=== PATIENT | female | born 1995 | race Caucasian/White ===

== ENCOUNTER → 2019-05-13 | Outpatient (CLI) | payer SELFPAY ==
--- NOTE | 2019-05-13 16:29 | Diagnostic Imaging Report ---
INDICATION: TB screening FINDINGS: The lungs are clear. The heart and vessels normal. There is no effusion or pneumothorax. IMPRESSION: Negative. Dictated by: Dictated on workstation # [id number]
== END ==
LOC: RAD FS 11:52
PROVIDERS: ATTEND Nurse Practitioner
DX: Z11.1 Encounter for screening for respiratory tuberculosis (principal)
CPT/HCPCS: 71046

== ENCOUNTER → 2019-05-26 | Outpatient (CLI) | payer OTHER ==
[~2019-05-26] MED LIST: LIDOCAINE 1% INJ 20 ML 20 ML VIAL INJ ONE; LIDOCAINE 1% INJ 20 ML 20 ML VIAL ONE
--- NOTE | 2019-05-26 15:41 | Diagnostic Imaging Report ---
INDICATION: Right breast mass. Patient presents for an ultrasound-guided biopsy. TECHNIQUE: The patient was brought to the procedure room and placed on the table in the supine position. Ultrasound imaging of the right breast was performed to evaluate for an appropriate entry site. The right breast was then prepped and draped in the usual sterile fashion. A small amount of 1% lidocaine was utilized for local anesthesia. A total of three passes was made into the solid mass at the 2 o'clock location of the right breast 3 cm from the nipple utilizing a 14-gauge Achieve needle. A marker clip was then deployed within the lesion. Hemostasis was obtained using manual compression. The patient tolerated the procedure well and left the Department in stable condition. IMPRESSION: Successful ultrasound guided core biopsy of the solid mass at the 2 o'clock location of the right breast as described. Pathology results are currently pending. Dictated by: Dictated on workstation # [id number]
== END ==
LOC: RAD 10:24
PROVIDERS: ATTEND Nurse Practitioner
DX: N63.12 Unspecified lump in the right breast, upper inner quadrant (principal)
CPT/HCPCS: 19083

== ENCOUNTER → 2020-09-03 | Outpatient (CLI) | payer OTHER ==
[~2020-09-03] VITALS: Ht 144.8 cm; Wt 36.4 kg
[~2020-09-03] MED LIST changes: -LIDOCAINE 1% INJ 20 ML 20 ML VIAL ONE
--- NOTE | 2020-09-03 10:34 | Diagnostic Imaging Report ---
INDICATION: Left breast nodule. PROCEDURE: Patient presents for ultrasound-guided core biopsy. The patient was brought to the procedure room, placed on the table in the supine position. Ultrasound imaging of the left breast was performed to evaluate appropriate entry site. The left breast was then prepped and draped in the usual sterile fashion. A small amount of 1% lidocaine was utilized for local anesthesia. Two core biopsies were obtained of the hypoechoic solid mass at the 10:00 location of the left breast, 3 cm from the nipple, utilizing a 14-gauge Achieve needle. Marker clip was then deployed. Hemostasis was obtained using manual compression. The patient tolerated the procedure well left the department in stable condition. IMPRESSION: Successful sono-guided core biopsy of left breast mass. Pathology results are currently pending. Dictated by: Dictated on workstation # [id number]
== END ==
LOC: RAD 09:01
PROVIDERS: ATTEND Nurse Practitioner
DX: N63.20 Unspecified lump in the left breast, unspecified quadrant (principal)
CPT/HCPCS: 19083; A4648

== ENCOUNTER 2022-01-10 01:51 | Inpatient (IN) | payer SELFPAY ==
[~2022-01-10] VITALS: Ht 139.7 cm; Wt 54.6 kg
[2022-01-10] VITALS (66 sets, daily range): BP systolic 91–138; BP diastolic 51–90
[2022-01-10 02:25] LABS: BILIRUBIN,URINE NEGATIVE (NEGATIVE); CLARITY,URINE CLEAR; COLOR,URINE YELLOW; GLUCOSE, URINE (UA) NEGATIVE (NEGATIVE); KETONES,URINE NEGATIVE (NEGATIVE); LEUKOCYTE ESTERASE ,URINE NEGATIVE (NEGATIVE); NITRITE,URINE NEGATIVE (NEGATIVE); PH,URINE 6.5 (5-9); PROTEIN,URINE 2+ (NEGATIVE)
[2022-01-10] MEDS ORDERED: PREN-142 PO (02:29)
[2022-01-10] MEDS ORDERED: FERR-84 PO (02:29)
[2022-01-10 02:39] LABS: WBC,URINE 0-2 /HPF
[2022-01-10 02:40] LABS: BACTERIA,URINE FEW /HPF
[2022-01-10 03:00] LABS: BASOPHILS % (AUTO) 0 % (0-10); EOSINOPHILS # (AUTO) 0.3 10^3/uL (0.0-0.3); EOSINOPHILS % (AUTO) 3 % (0-10); HEMATOCRIT 39 % (35-52); HEMOGLOBIN 13.3 g/dL (11.5-16.0); LYMPHOCYTES # (AUTO) 3.3 10^3/uL (1.0-4.0); LYMPHOCYTES % (AUTO) 29 % (12-44); MEAN CORPUSCULAR HEMOGLOBIN 31 pg (25-34); MEAN CORPUSCULAR HGB CONC 34 g/dL (32-36); MEAN CORPUSCULAR VOLUME 92 fL (80-99); MEAN PLATELET VOLUME 11.1 fL (9.0-12.2); MONOCYTES # (AUTO) 0.9 10^3/uL (0.0-1.0); MONOCYTES % (AUTO) 8 % (0-12); NEUTROPHILS % (AUTO) 61 % (42-75); PLATELET COUNT 269 10^3/uL (130-400); WHITE BLOOD COUNT 11.5 10^3/uL (4.3-11.0)
[2022-01-10] MEDS: D5 LR IV SOLUTION 1,000 ML IV SCH ×2 (03:19→11:17)
[2022-01-10] MEDS ORDERED: CATHETER FLUSH 10 ML SYR IV SCH ×2 (06:00→22:00)
[2022-01-10] MEDS ORDERED: OXYTOCIN PRE-MIX DRIP 500 ML IV SCH ×2 (07:30→20:00)
--- NOTE | 2022-01-10 07:33 | History & Physical-OB ---
OB - Chief Complaint & HPI Date/Time Date of Admission: Date of Admission: Jan 10, 2022 at 02:33 Date seen by a Provider: Jan 10, 2022 Time Seen by a Provider: 07:20 Chief Complaint/History OB-Reason for Admission/Chief: Rupture of Membranes Hx : 1 Hx Para: 0 Expected Date of Delivery: Jan 18, 2022 Gestational Age in Weeks: 38 Gestational Age in Days: 6 Admission Nurse Assessment Rev: Yes History of Labs GBS negative, A pos, RPR neg, HIV neg Allergies and Home Medications Allergies Coded Allergies: No Known Drug Allergies (Unverified , 05/26/19) Patient Home Medication List Home Medication List Reviewed: Yes Ferrous Sulfate (Iron) 325 Mg (65 Mg Iron) Tablet, 325 MG PO DAILY, (Reported) Entered as Reported by: DECLAN ESCALERA on 01/10/22228 Last Action: New Order Vit No.124/Iron/FA ( Vitamin Tablet) 27 Mg Iron-800 Mcg Tablet, 1 EACH PO DAILY, (Reported) Entered as Reported by: DECLAN ESCALERA on 01/10/22228 Last Action: New Order OB - History Hx of Present Care: Yes Ultrasounds: Normal mid trimester US Obstetrical Complications: None Medical Complications: None Obstetrical History Hx : 1 Hx Para: 0 Patient Past Medical History no chronic medical problems Social History/Family History Alcohol Use: Denies Use Recreational Drug Use: No 2nd Hand Smoke Exposure: No Immunizations Influenza Vaccine Up-to-Date: No; Not Current Hepatitis A: Yes Hepatitis B: Yes OB - Admission Exam Physical Exam Vitals: Vital Signs 01/10/22 01/10/22 03:26 05:40 Temp 36.7 Pulse 69 Resp 18 B/P (MAP) 124/75 (91) Pulse Ox 99 O2 Delivery Room Air HEENT: Moist Membranes Heart: Rhythm Normal Lungs: Clear Abdomen: Gravid Extremities: Normal Cervical Dilatation: None Effacement: 75% Station: -3 Membranes: Ruptured Amniotic Fluid: Clear Heart Rate: 140's Accelerations: Accelerations Present Short Term Variability: Present Last Picker Variability: Average (6-25) Contractions on Admission: 6-10 Minutes Apart Intensity: Mild Labs Laboratory Tests Test 01/10/22 02:10 01/10/22 02:15 01/10/22 02:45 Range/Units Urine Color YELLOW Urine Clarity CLEAR Urine pH 6.5 5-9 Urine Specific [place] 1.020 1.016-1.022 Urine Protein 2+ H NEGATIVE Urine Glucose (UA) NEGATIVE NEGATIVE Urine Ketones NEGATIVE NEGATIVE Urine Nitrite NEGATIVE NEGATIVE Urine Bilirubin NEGATIVE NEGATIVE Urine Urobilinogen 0.2 < = 1.0 MG/DL Urine Leukocyte Esterase NEGATIVE NEGATIVE Urine RBC (Auto) 1+ H NEGATIVE Urine RBC 2-5 H /HPF Urine WBC 0-2 /HPF Urine Squamous Epithelial Cells 10-25 H /HPF Urine Crystals NONE /LPF Urine Bacteria FEW H /HPF Urine Casts NONE /LPF Urine Mucus MODERATE H /LPF Urine Culture Indicated NO Membranes Rupture POSITIVE White Blood Count 11.5 H 4.3-11.0 10^3/uL Red Blood Count 4.24 3.80-5.11 10^6/uL Hemoglobin 13.3 11.5-16.0 g/dL Hematocrit 39 35-52 % Mean Corpuscular Volume 92 80-99 fL Mean Corpuscular Hemoglobin 31 25-34 pg Mean Corpuscular Hemoglobin Concent 34 32-36 g/dL Red Cell Distribution Width 15.1 H 10.0-14.5 % Platelet Count 269 130-400 10^3/uL Mean Platelet Volume 11.1 9.0-12.2 fL Immature Granulocyte % (Auto) 0 % Neutrophils (%) (Auto) 61 42-75 % Lymphocytes (%) (Auto) 29 12-44 % Monocytes (%) (Auto) 8 0-12 % Eosinophils (%) (Auto) 3 0-10 % Basophils (%) (Auto) 0 0-10 % Neutrophils # (Auto) 7.0 1.8-7.8 10^3/uL Lymphocytes # (Auto) 3.3 1.0-4.0 10^3/uL Monocytes # (Auto) 0.9 0.0-1.0 10^3/uL Eosinophils # (Auto) 0.3 0.0-0.3 10^3/uL Basophils # (Auto) 0.0 0.0-0.1 10^3/uL Immature Granulocyte # (Auto) 0.0 0.0-0.1 10^3/uL OB - Assessment/Plan/Diagnosis Assessment Assessment: rupture of membranes (at term 38w6d) Admission Dx 1. IUP at term 38w6d gestation with SROM and now in labor Admission Status: Inpatient Order (span 2 midnights) Reason for Inpatient Admission: L&D Plan Plan: Expectant Management Induction Method: per Pitocin Protocol Other Plan -pitocin -epidural if so desired MIGUEL ANGEL RODRIGUEZ MD Jan 10, 2022 07:33
[2022-01-10] MEDS ORDERED: LACTATED RINGERS 1,000 ML IV ONE ×2 (07:46→09:00)
[2022-01-10] MEDS ORDERED: fentaNYL 2 mcg/ml BUPIVA 0.125 100 ML ONE (07:46)
[2022-01-10] MEDS ORDERED: fentaNYL INJ 100 MCG/2 ML AMP ONE (08:47)
[2022-01-10] MEDS ORDERED: CATHETER FLUSH 10 ML SYR IV PRN (09:00)
[2022-01-10] MEDS ORDERED: fentaNYL INJ 100 MCG/2 ML AMP INJ ONE (09:00)
[2022-01-10] MEDS ORDERED: NALOXONE 0.4 MG/ML 1 ML (NARCAN) VIAL IV PRN ×2 (09:00→20:00)
[2022-01-10] MEDS ORDERED: ONDANSETRON 4 MG/2 ML (SDV) Z0FRAN IV PRN (09:00)
[2022-01-10] MEDS ORDERED: fentaNYL 2 mcg/ml BUPIVA 0.125 100 ML IV SCH (09:00)
[2022-01-10] MEDS ORDERED: MEPIVACAINE (CARBOCAINE) 2% 50 ML VIAL ONE (17:33)
--- NOTE | 2022-01-10 19:58 | OB Labor & Delivery Record ---
L&D History Date of Service Date of Service: Jan 10, 2022 History Expected Date of Delivery: Jan 18, 2022 Gestational Age in Weeks: 38 Hx : 1 Hx Para: 1 Complications Events: Routine care Operative Indications (Cesarea: N/A-Vaginal Delivery Intrapartal Events: None Other Complications GBS negative L&D Stage1 Stage One Onset of Labor - Date: Jan 10, 2022 Onset of Labor - Time: 01:00 Monitors and Tracing Monitor Mode: External Heart Rate: 140 Monitor Accelerations: Uniform Monitor Decelerations: None Station: 0 Care Home Variability: Average (6-10) Short Term Variability: Present Presentation: Vertex Vital Signs VS - Last 72 Hours, by Label 01/10/22 01/10/22 01/10/22 01/10/22 02:04 03:20 03:26 05:40 Temp 37.1 37.2 37.2 36.7 Pulse 88 88 89 69 Resp 18 18 18 18 B/P (MAP) 131/77 124/75 (91) Pulse Ox 99 98 99 O2 Delivery Room Air Room Air Room Air Room Air 01/10/22 01/10/22 01/10/22 01/10/22 07:20 07:48 08:20 08:26 Temp 37.0 Pulse 68 68 70 96 Resp 18 18 18 18 B/P (MAP) 111/60 (77) 110/70 (83) 109/58 (75) 128/70 (89) Pulse Ox 98 O2 Delivery Room Air Room Air Room Air Room Air 01/10/22 01/10/22 01/10/22 01/10/22 08:29 08:32 08:35 08:38 Pulse 102 104 103 81 Resp 18 18 18 18 B/P (MAP) 137/71 (93) 125/67 (86) 125/80 (95) 118/65 (82) Pulse Ox 98 99 98 O2 Delivery Room Air Room Air Room Air Room Air 01/10/22 01/10/22 01/10/22 01/10/22 08:42 08:46 08:48 08:51 Pulse 75 74 72 66 Resp 18 18 18 18 B/P (MAP) 108/61 (77) 123/60 (81) 107/63 (78) 107/62 (77) Pulse Ox 99 97 97 97 O2 Delivery Room Air Room Air Room Air Room Air 01/10/22 01/10/22 01/10/22 01/10/22 08:54 09:02 09:07 09:12 Temp 36.9 Pulse 64 61 82 62 Resp 18 18 18 18 B/P (MAP) 110/65 (80) 106/64 (78) 127/63 (84) 108/63 (78) Pulse Ox 97 97 98 O2 Delivery Room Air Room Air Room Air Room Air 01/10/22 01/10/22 01/10/22 01/10/22 09:44 09:50 09:58 10:12 Temp 36.5 Pulse 66 63 63 Resp 18 18 18 B/P (MAP) 117/64 (81) 116/66 (83) 111/65 (80) Pulse Ox 98 99 98 O2 Delivery Room Air Room Air Room Air 01/10/22 01/10/22 01/10/22 01/10/22 10:27 10:44 10:59 11:14 Pulse 64 62 69 73 Resp 18 18 18 18 B/P (MAP) 116/70 (85) 118/67 (84) 126/74 (91) 112/66 (81) Pulse Ox 98 97 99 100 O2 Delivery Room Air Room Air Room Air Room Air 01/10/22 01/10/22 01/10/22 01/10/22 11:16 11:29 11:44 11:50 Temp 36.7 36.7 Pulse 115 67 Resp 18 18 B/P (MAP) 126/85 (99) 121/72 (88) Pulse Ox 98 99 O2 Delivery Room Air Room Air 01/10/22 01/10/22 01/10/22 01/10/22 12:00 12:13 12:28 13:00 Pulse 66 72 67 70 Resp 18 18 18 18 B/P (MAP) 105/57 (73) 129/76 (93) 127/69 (88) 129/73 (91) Pulse Ox 98 97 98 98 O2 Delivery Room Air Room Air Room Air Room Air 01/10/22 01/10/22 01/10/22 01/10/22 13:14 13:29 13:34 13:45 Temp 37.1 Pulse 69 87 67 Resp 18 18 18 B/P (MAP) 118/59 (78) 113/71 (85) 100/55 (70) Pulse Ox 98 98 98 O2 Delivery Room Air Room Air Room Air 01/10/22 01/10/22 01/10/22 01/10/22 13:58 14:14 14:30 14:43 Pulse 77 74 80 90 Resp 18 18 18 18 B/P (MAP) 93/55 (68) 107/57 (74) 98/52 (67) 108/71 (83) Pulse Ox 100 100 100 100 O2 Delivery Room Air Room Air Room Air Room Air 01/10/22 01/10/22 01/10/22 01/10/22 15:13 15:28 15:44 15:52 Temp 37.1 Pulse 80 83 85 Resp 18 18 18 B/P (MAP) 115/67 (83) 105/59 (74) 106/63 (77) Pulse Ox 98 98 98 O2 Delivery Room Air Room Air Room Air 01/10/22 01/10/22 01/10/22 01/10/22 16:00 16:15 16:45 16:58 Pulse 86 72 73 76 Resp 18 18 18 18 B/P (MAP) 135/90 (105) 104/63 (77) 132/73 (92) 119/68 (85) Pulse Ox 99 100 98 100 O2 Delivery Room Air Room Air Room Air Room Air 01/10/22 01/10/22 01/10/22 01/10/22 17:13 17:28 17:38 17:43 Temp 37.5 Pulse 77 79 90 Resp 18 18 18 B/P (MAP) 126/61 (82) 115/62 (79) 137/65 (89) Pulse Ox 99 98 O2 Delivery Room Air Room Air Room Air 01/10/22 01/10/22 01/10/22 01/10/22 17:58 18:14 18:28 18:43 Pulse 133 153 157 Resp 18 18 18 18 B/P (MAP) 138/77 (97) 137/89 (105) 138/79 (98) 132/60 (84) O2 Delivery Room Air Room Air Room Air Room Air 01/10/22 19:00 Pulse 134 Resp 18 B/P (MAP) 130/60 (83) O2 Delivery Room Air Signs of Distress by FHT Signs of Distress no Rupture of Membranes Spontaneous Ruture of Membrane: Yes Amniotic Membrane Rupture Time: 0100 Amniotic Membrane Fluid Desc.: Clear Induction/Anesthesia Epidural Cath Placement - Time: 0837 L&D Stage2 Stage Two Stage II Date: Jan 10, 2022 Stage II Time: 19:21 Monitors and Tracing Monitor Mode: Internal Heart Rate: 140 Monitor Decelerations: None Care Home Variability: Average (6-10) Short Term Variability: Present Position: Left Occiput Anterior Presentation: Vertex Signs of Distress by FHT Signs of Distress no Cord Descript/Complications Cord Vessel Description: 3 Vessels Delivery Type Delivery Method: Spontaneous Vaginal Anterior Shoulder: Left Episiotomy/Perineal Laceration Episiotomy Description: None, 2nd degree Sutures Used: Vicryl Condition of Infant Delivery 1 minute Comment: 8 5 minute Comment: 9 Condition of Exam: No Observed Abnormalities Resuscitation Resuscitation: N/A - Spontaneous Resp L&D Stage3 Stage Three Stage III Date: Jan 10, 2022 Stage III Time: 19:26 Pictocin Pitocin Administration mu/min: 16 Pitocin ml/hr: 16 Pitocin Administration Comment: 1237 PITOCIN INCREASED PER PROTOCOL. Placenta Delivery Placenta Delivery: Spontaneous Delivery Summary Summary Estimated blood loss (mL): 200 Condition of Delivery Examined: Cervix Examined Post Hemorrhage: No Intervention Required none MIGUEL ANGEL RODRIGUEZ MD Jan 10, 2022 19:57
[2022-01-10] MEDS ORDERED: BENZOCAINE/MENTHOL (DERMOPLAST) 56 ML CAN TP PRN (20:00)
[2022-01-10] MEDS ORDERED: MEASLES,MUMPS,RUBELLA 1 EA INJ SQ ONE (20:00)
[2022-01-10] MEDS ORDERED: WITCH HAZEL(TUCKS) 40 EA JAR TOP PRN (20:00)
[2022-01-10] MEDS ORDERED: TETANUS,DIPTH,PERTUSS P/F (BOOSTRIX) 0.5 ML VIAL IM ONE (20:00)
[2022-01-10] MEDS ORDERED: IBUPROFEN 600 MG (MOTRIN) TAB PO ONE (20:59)
[2022-01-10] MEDS ORDERED: ACETAMINOPHEN 500 MG TAB (TYLENOL) ONE (20:59)
[2022-01-10] MEDS: IBUPROFEN 600 MG (MOTRIN) TAB PO SCH (21:03)
[2022-01-10] MEDS: ACETAMINOPHEN 500 MG TAB (TYLENOL) PO SCH (21:03)
[2022-01-11] VITALS (7 sets, daily range): BP systolic 112–125; BP diastolic 57–75
[2022-01-11] MEDS: DOCUSATE SODIUM 100 MG (COLACE) CAP PO SCH ×3 (03:18→21:37)
[2022-01-11] MEDS: ACETAMINOPHEN 500 MG TAB (TYLENOL) PO SCH ×3 (04:05→21:37)
[2022-01-11] MEDS: IBUPROFEN 600 MG (MOTRIN) TAB PO SCH ×4 (04:05→21:38)
[2022-01-11 05:47] LABS: BASOPHILS # (AUTO) 0.1 10^3/uL (0.0-0.1); BASOPHILS % (AUTO) 0 % (0-10); EOSINOPHILS # (AUTO) 0.1 10^3/uL (0.0-0.3); EOSINOPHILS % (AUTO) 1 % (0-10); HEMATOCRIT 30 % (35-52); HEMOGLOBIN 10.4 g/dL (11.5-16.0); LYMPHOCYTES # (AUTO) 2.6 10^3/uL (1.0-4.0); LYMPHOCYTES % (AUTO) 12 % (12-44); MEAN CORPUSCULAR HEMOGLOBIN 32 pg (25-34); MEAN CORPUSCULAR HGB CONC 35 g/dL (32-36); MEAN CORPUSCULAR VOLUME 93 fL (80-99); MEAN PLATELET VOLUME 11.2 fL (9.0-12.2); MONOCYTES # (AUTO) 1.3 10^3/uL (0.0-1.0); MONOCYTES % (AUTO) 6 % (0-12); NEUTROPHILS # (AUTO) 17.1 10^3/uL (1.8-7.8); NEUTROPHILS % (AUTO) 81 % (42-75); PLATELET COUNT 205 10^3/uL (130-400); WHITE BLOOD COUNT 21.2 10^3/uL (4.3-11.0)
--- NOTE | 2022-01-11 07:45 | Progress Note ---
Subjective Subjective/Events-last exam Patient has done well overnight. There is some soreness on perineal area. No significant vaginal bleeding. Objective Exam Last Set of Vital Signs Vital Signs Date Time Temp Pulse Resp B/P (MAP) Pulse Ox O2 Delivery O2 Flow Rate FiO2 01/11/22 04:05 36.2 77 18 120/69 (86) 98 Room Air Capillary Refill : Less Than 3 Seconds I&O Intake and Output 01/11/22 00:00 Intake Total 3500 ml Balance 3500 ml Intake IV Total 3500 ml Daily Weight Change No General: Alert Heart: Regular Rate Results/Procedures Lab Laboratory Tests 01/11/22 05:38: White Blood Count 21.2H, Red Blood Count 3.23L, Hemoglobin 10.4#L, Hematocrit 30L, Mean Corpuscular Volume 93, Mean Corpuscular Hemoglobin 32, Mean Corpuscular Hemoglobin Concent 35, Red Cell Distribution Width 15.3H, Platelet Count 205, Mean Platelet Volume 11.2, Immature Granulocyte % (Auto) 0, Neutrophils (%) (Auto) 81H, Lymphocytes (%) (Auto) 12, Monocytes (%) (Auto) 6, Eosinophils (%) (Auto) 1, Basophils (%) (Auto) 0, Neutrophils # (Auto) 17.1H, Lymphocytes # (Auto) 2.6, Monocytes # (Auto) 1.3H, Eosinophils # (Auto) 0.1, Basophils # (Auto) 0.1, Immature Granulocyte # (Auto) 0.1 Assessment/Plan Assessment/Plan Admission Dx 1. intrauterine at 38 weeks 6 days gestation Admission Status: Inpatient Order (span 2 midnights) Assessment & Plan 1. Intrauterine at 38 weeks 6 days gestationdelivered spontaneous vaginal -Routine care orders -Add Colace daily to regimen -Home in the morning of January 12 MIGUEL ANGEL RODRIGUEZ MD Jan 11, 2022 07:45
[2022-01-11] MEDS ORDERED: DOCUSATE SODIUM 100 MG (COLACE) CAP PO SCH (09:00)
--- NOTE | 2022-01-11 13:50 | Anesthesia-Regional Post-Op ---
Regional Patient Condition Mental Status: Alert, Oriented x3 Circulation: Same as Pre-Op Headache: Absent Sensation: Full Recovery Motor Block: Absent Post Op Complications Complications None Follow Up Care/Instructions Patient Instructions None needed. Anesthesia/Patient Condition Patient is doing well, no complaints, stable vital signs, no apparent adverse anesthesia problems. No complications reported per nursing. JOSUE DAVENPORT CRNA Jan 11, 2022 13:50
[2022-01-12 03:39] VITALS: BP 128/77
[2022-01-12] MEDS: ACETAMINOPHEN 500 MG TAB (TYLENOL) PO SCH ×2 (03:39→09:41)
[2022-01-12] MEDS: IBUPROFEN 600 MG (MOTRIN) TAB PO SCH ×2 (03:40→09:40)
--- NOTE | 2022-01-12 07:53 | Discharge Summary ---
Diagnosis/Chief Complaint Date of Admission Jan 10, 2022 at 02:33 Date of Discharge January 12, 2022 Admission Diagnosis Admission Diagnosis 1. Intrauterine at 38 weeks 6 days gestation Discharge Diagnosis 1. Intrauterine at 38 weeks 6 days gestation Chief Complaint/HPI Chief Complaint/HPI 26-year-old 1 now term 1 L1 ho initially presented to labor and delivery with spontaneous rupture of membranes in the morning of January 10, 2022. She was noted to be GBS negative at [facility] at 36 weeks gestation. Her due date was noted to be January 18, 2022. Her care was esse ntially unremarkable. Blood was noted to be clear and ruptured at 0100 on January 10 Discharge Summary-OBS Procedures 1. Epidural per anesthesia 2. Spontaneous vaginal delivery 3. Repair of second-degree perineal laceration Discharge Physical Examination Allergies: Coded Allergies: No Known Drug Allergies (Unverified , 05/26/19) Vitals & I&Os Vital Sign - Last 12Hours Date Time Temp Pulse Resp B/P (MAP) Pulse Ox O2 Delivery O2 Flow Rate FiO2 01/12/22 03:39 36.6 70 16 128/77 (94) 99 Room Air General Appearance: Alert, Oriented X3 Respiratory: Clear to Auscultation Cardiovascular: Regular Rate Abdominal: Soft Hospital Course Was the Problem List Reviewed?: Yes upon admission patient underwent antepartum care orders. She required Pitocin augmentation to achieve adequate contraction. She requested epidural and gained excellent pain relief during labor. Ultimately she went on to deliver over a second-degree perineal laceration and a term viable female. Delivery was accomplished on January 10 at 1921. It received Apgars of 8 and 1 minute and 9 at 5 minutes. See labor and delivery summary for full details following delivery she underwent routine care orders. She had no significant complaints during the remainder of hospital stay. She did have some cramping but this was controlled with ibuprofen. Her hemoglobin in the morning of January 11 was 10.4 compared to admission of 13.3. She was given stool softener during the course of her hospital stay daily. She tolerated regular diet. She was noted to void urine without difficulty. She was felt ready for dismissal in the morning of January 12, 2022 and follow-up with myself in [facility] Discharge Instructions to patient/family Please see electronic discharge instructions given to patient. Discharge Medications Reviewed and agree with Discharge Medication list on patient's Discharge Instruction sheet MIGUEL ANGEL RODRIGUEZ MD Jan 12, 2022 07:53
[2022-01-12] MEDS ORDERED: DOCU100C37 PO (07:55)
[2022-01-12] MEDS ORDERED: IBUP-844 PO (07:55)
[2022-01-12] MEDS ORDERED: FERR-84 PO (07:55)
--- NOTE | 2022-01-12 07:56 | Discharge Inst-Women's Service ---
Discharge Inst-Women's Serv Depart Medication/Instructions New, Converted or Re-Newed RX: Transmitted to Pharmacy ([facility]) Problems Reviewed?: Yes Consults/Follow Up Additional Follow Up: Yes (Dr. Rodriguez in [facility] weeks at [facility]) Activity Activity: Activity as Tolerated Driving Instructions: No Driving for 1 Week Nothing Inside Vagina: No [place] (for 6 weeks) Diet Discharge Diet: Regular Diet Return to The Hospital For: as below Symptoms to Report to : Bleeding Excessive, Pain Increased, Fever Over 101 Degrees F, Vaginal Discharge Foul For Any Problems or Questions: Contact Your Physician MIGUEL ANGEL RODRIGUEZ MD Jan 12, 2022 07:56
[2022-01-12 08:20] VITALS: BP 125/77
[2022-01-12 12:42] VITALS: BP 125/77
== END 2022-01-12 13:35 | disposition home or self-care (01) | DRG 807 ==
LOC: WSo 01:51 → LDRP 01:52 → WSo 02:33 → LDRP 22:15
PROVIDERS: ADMIT Family Medicine; ATTEND Family Medicine
PROC: 10E0XZZ Delivery of Products of Conception, External Approach (ICD-10-PCS; principal; 2022-01-10)
PROC: 0KQM0ZZ Repair Perineum Muscle, Open Approach (ICD-10-PCS; 2022-01-10)
DX: O70.1 Second degree perineal laceration during delivery (principal); Z37.0 Single live birth; Z3A.38 38 weeks gestation of pregnancy
CPT/HCPCS: 36415; 81000; 84112; 85025; 86780; 86850; 86900; 86901; 99212